=== PATIENT | female | born 1980 ===

== ENCOUNTER 2016-12-21 18:39 | Inpatient (IN) | payer OTHER ==
[~2016-12-21] VITALS: Ht 160 cm; Wt 71.2 kg
[~2016-12-21 18:39] MED LIST: Morphine PF 1 mg/mL 10 mL Inj ONE; Ondansetron 2 mg/mL 2 mL Inj ONE; Oxytocin 10 Unit/mL Inj ONE; Phenylephrine/NS 100 mCg/mL 10 mL Syringe IVPUSH ONE; fentaNYL-PF 50 mCg/mL 2 mL Inj ONE
[2016-12-21] MEDS ORDERED: Bupivacaine-MPF 0.75% 30 mL Inj ONE (19:41)
[2016-12-21] MEDS ORDERED: Phenylephrine/NS 100 mCg/mL 10 mL Syringe IVPUSH ONE (19:41)
[2016-12-21] MEDS ORDERED: Ondansetron 2 mg/mL 2 mL Inj ONE (19:41)
[2016-12-21] MEDS ORDERED: Oxytocin 10 Unit/mL Inj ONE (19:41)
[2016-12-21] MEDS ORDERED: Methylergonovine 0.2 mg/mL Inj IM PRN ×2 (19:55→22:10)
[2016-12-21] MEDS ORDERED: Sodium Chloride LOK Flush 10 mL Syringe IVFLUSH PRN ×2 (19:55→22:10)
[2016-12-21] MEDS ORDERED: Carboprost 250 mCg/mL Inj IM PRN ×2 (19:55→22:10)
[2016-12-21] MEDS ORDERED: Oxytocin 30 Units/500 mL LR 30 UNITS in IV Premix 1 EACH IV PRN ×2 (19:55→22:10)
[2016-12-21] MEDS ORDERED: Oxytocin 10 Unit/mL Inj IM PRN ×2 (19:55→22:10)
[2016-12-21] MEDS ORDERED: Hemorrhage Kit, Post Partum XX ONE ×2 (19:55→22:10)
[2016-12-21 20:00] LABS: Mean Corpuscular Hemoglobin 28.1 pg (27.0-35.0); Mean Corpuscular Volume 82.9 fL (81-100)
[2016-12-21] MEDS: Lactated Ringer's 1,000 ML IV PRN ×2 (20:12→20:34)
[2016-12-21] MEDS ORDERED: Sodium Citrate-Citric Acid 15 mL Solution PO SCH (20:25)
[2016-12-21] MEDS ORDERED: CeFAZolin Inj 2 GM in IV Premix 1 EACH IV ONE (20:25)
--- NOTE | 2016-12-21 20:29 | PCM.HPANE ---
Patient Data Surgeon Admitting Provider:Kris Padilla MD Attending Provider:Kris Padilla MD Primary Care Physician:Nopkenisha Other Provider: Reason for Visit Active Labor Ht/WT & BMI Body Mass Index Allergies Coded Allergies: No Known Allergies (Unverified , 12/21/16) Past Anesthesia History Anesthesia History: Denies:: Abnormal Airway, Anesthesia Reactions, Fam Anesthesia Reaction Diabetes History Hx Diabetes?: No MRSA MRSA: No Medications Hypertension Medication: No Home Meds Incl Beta Davie: No History History of ENT Problems?: No HEENT History: Denies:: Abnormal Airway Difficult Intubation Denture Type: None Teeth Condition: Broken Teeth (front tooth chipped, upper) Hx of Heart Problems?: No Cardiovascular History: Denies:: Cardiac Surgery Chest Pain Hx of Respiratory Problem?: No Respiratory History: Denies:: Asthma Hx Neurologic Problems?: No Hx of GI Problems?: No Hx of Problems?: No Female Hx: Positive for:: Currently Hx Musculoskeletal Problems?: No Hx Surgeries?: Yes Stop/Bang LATOSHA Risk Assessment: Low Risk, <3 Yes Risk Assessment Category Category 1A: Patient has history of documented sleep apnea, and HAS NOT received any narcotic, sedative or anesthesia administration during this stay. Category 1B: Patient has history of documented sleep apnea, and HAS received any narcotic , sedative or anesthesia administration during this stay Category 2: Patient has SUSPECTED Obstructive Sleep Apnea, and HAS received any narcotic , sedative or anesthesia administration during this stay. Category 3: Patient has SUSPECTED Obstructive Sleep Apnea and HAS NOT received narcotic, sedative or anesthesia administration during this stay. Category 4: Outpatient in Procedural Areas with known sleep apnea or who screen positive for High Risk via the STOP/BANG questionnaire. Exam Exam General Appearance: Alert, Oriented X3, Cooperative, No Acute Distress HEENT/AIRWAY: MP 1 Lungs: Normal Air Movement Heart: Exam Unremarkable Meds/Labs/Diagnostics Labs Test 12/21/16 19:56 White Blood Count 15.9th/mm3 (3.8-10.1) Red Blood Count 4.49mil/mm3 (3.90-5.20) Hemoglobin 12.6g/dL (12.0-15.6) Hematocrit 37.2% (35.0-46.0) Mean Corpuscular Volume 82.9fL (81-100) Mean Corpuscular Hemoglobin 28.1pg (27.0-35.0) Mean Corpuscular Hemoglobin Concent 33.9% (32.0-37.0) Red Cell Distribution Width 13.3% (12.3-15.4) Platelet Count 168bil/L (150-400) Plan Impression Patient chart reviewed, patient interviewed and anesthestic plan with risks, benefits, and alternatives discussed, and informed consent obtained. NPO per Anesth. Guidelines: Yes ASA Physical Status: ASA1 Normal Healthy Anesthetic Plan: SAB Bene/Risks/Altern/Consents: Yes HP Complete Prior to Induction: Yes Aly Swartz MD Dec 21, 2016 20:29
[2016-12-21] MEDS ORDERED: LEVO50TA6 PO (20:37)
[2016-12-21] MEDS ORDERED: PNV1TABL9 PO (20:38)
[2016-12-21] MEDS ORDERED: Lactated Ringer's 1,000 ML IV PRN (21:29)
[2016-12-21] MEDS ORDERED: fentaNYL-PF 50 mCg/mL 2 mL Inj IVPUSH PRN (21:30)
[2016-12-21] MEDS ORDERED: Dexamethasone 4 mg/mL Inj IVPUSH PRN (21:30)
[2016-12-21] MEDS ORDERED: Ondansetron 2 mg/mL 2 mL Inj IVPUSH PRN (21:30)
[2016-12-21] MEDS ORDERED: EPHEDrine Sulfate 50 mg/mL Inj IVPUSH PRN (21:30)
[2016-12-21] MEDS ORDERED: Atropine 0.4 mg/mL Inj IV PRN (21:30)
[2016-12-21] MEDS ORDERED: Morphine PF 1 mg/mL 10 mL Inj EPIDURAL ONE (21:30)
[2016-12-21] MEDS ORDERED: Lactated Ringer's 1,000 ML IV SCH (22:08)
[2016-12-21] MEDS ORDERED: diphenhydrAMINE 50 mg Capsule PO PRN (22:10)
[2016-12-21] MEDS ORDERED: hydrOXYzine Pamoate 25 mg Capsule PO PRN (22:10)
[2016-12-21] MEDS ORDERED: LANOlin HPA 7 Gm Ointment TOPICAL PRN (22:10)
--- NOTE | 2016-12-21 22:24 | HP ---
[address] [address] HISTORY AND PHYSICAL PATIENT: BHUPINDER TOLLIVER : 1980 MR#: [id number] ADMIT: 12/21/2016 JOB ID: [id number] DATE: 12/21/2016 HISTORY OF PRESENT ILLNESS: The patient is a 36-year-old, 3, para 2, with a history of one spontaneous vaginal delivery and one prior delivery in [facility], unknown prior uterine scar, vertical abdominal incision. The patient has been seen in the clinic today for care, was examined, was found to be 3 cm dilated. The patient presents to Labor and Delivery with complaint of contractions that started at around 5 p.m., becoming more frequent and intense, every 5 minutes. heart rate tracing is reactive, category 1, baseline 150 beats per minute, good accelerations. care was uncomplicated. She is group B strep negative. Rubella immune. SOCIAL HISTORY: Patient denies smoking, alcohol, illicit recreational drug use. FAMILY HISTORY: Noncontributory. ALLERGIES: NKDA. PHYSICAL EXAMINATION: Vital signs: Temperature 36.6, blood pressure 120/64 and regular, respiratory rate 18. General: Awake alert, oriented x3 in no apparent distress, complains of increasing contractions, moderate. Lungs clear bilaterally, no adventitious sounds, good respiratory effort. Cardiovascular: Regular rate and rhythm. Abdomen is gravid, fundal height 40 cm, nondistended, nontender. Cephalic presentation. Vaginal exam: The cervix is 3-4 cm dilated, 75% effaced, station -2. Intact membranes. Slight spotting. Extremities: No pitting edema bilaterally. LABS: WBC count 15.9, hemoglobin 12.6, hematocrit 37.2, platelets 168. ASSESSMENT AND PLAN: This is a 36-year-old, 3, para 2, at 39 weeks and 9 days in labor, presents to Labor and Delivery, history of prior section with unknown scar overseas in [facility]. The risks and benefits of repeat delivery were explained to the patient and informed consent was obtained. The patient received preoperative antibiotics. Bicitra was given. IV hydration started with lactated Ringer at 125 mL/h. The patient is going for repeat delivery.
--- NOTE | 2016-12-21 22:52 | OP ---
[address] [address] OPERATIVE REPORT PATIENT: BHUPINDER TOLLIVER : 1980 MR#: [id number] ADMIT: 12/21/2016 JOB ID: [id number] DATE OF SURGERY: 12/21/2016 PROCEDURE: Repeat low transverse delivery. PREOPERATIVE DIAGNOSIS(ES): 1. Intrauterine , 39 weeks and 6 days. 2. History of prior section with unknown uterine scar. 3. bradycardia. POSTOPERATIVE DIAGNOSIS(ES): SURGEON: Kris Padilla MD. HEAVY EQUIPMENT SERVICE MANAGER: Foreign So MD. ANESTHESIA: Spinal. Aly Swartz MD ESTIMATED BLOOD LOSS: 700 mL. ESTIMATED FLUIDS: 1500 mL of lactated Ringer's. URINE OUTPUT: 300 mL. FINDINGS: Some adhesions between the lower uterine segment and the bladder. Prior transverse scar on the uterus. Normal appearance of the adnexa. Delivered female with weight 3276 g. scores 7 at one minute and 9 at five minutes. PROCEDURE: The patient was brought to the operating room, where she underwent spinal anesthesia without difficulty. The patient was placed in a dorsal supine position with a leftward tilt. She received preoperative antibiotics. Shortly prior to the section, the heart rate tracing showed bradycardia so there was no time for the time-out. Emergent low transverse delivery was done. The skin was incised by Pfannenstiel incision and it was carried down to the underlying layer of rectus muscle fascia using scalpel. The rectus muscle fascia was incised in the midline with the scalpel and the incision was laterally extended using Benítez scissors. The upper aspect of the incision was grasped with two Aakash clamps and the rectus muscle fascia was from the underlying rectus muscle using moist laparotomy sponge and Benítez scissors. In a similar fashion, the lower aspect of the incision was grasped with two Aakash clamps and the rectus muscle fascia was from the underlying rectus muscle using Benítez scissors. The rectus muscles were in the midline using Sravanthi clamp. The peritoneum was identified, entered and extended laterally. The patient had adhesions between the bladder and lower uterine segment. It was lysed using Metzenbaum scissors. When the lower uterine segment was seen, it was incised with a scalpel. Lower segment transverse uterine incision was made and extended laterally using bandage scissors. The head of the was gently held, the bladder blade was removed, and female was atraumatically delivered. The baby was handed off to the awaiting community affairs manager and respiratory therapist. The time from the incision to delivery was three minutes. The cord blood was sent. The placenta was removed by application of fundal pressure. The uterus was exteriorized and cleared from all the blood clots and debris using dry laparotomy sponge. The uterine incision was repaired with two layers of 0 Monocryl. Good hemostasis was achieved. The pelvis was irrigated with warm normal saline and the uterus was repositioned into the pelvis. The rectus muscles were reapproximated with three interrupted 2-0 Vicryl sutures. The rectus muscle fascia was closed with 0-Vicryl. The Antonio's fascia and subcuticular tissue was reapproximated with four interrupted 3-0 Vicryl sutures. The skin was closed with 4-0 Monocryl. Dermabond glue was applied. Hemostatic dressing was applied. The patient tolerated the procedure well and was transferred to the recovery room in stable condition. MANPREET
[2016-12-21] MEDS: Acetaminophen IV 1,000 MG in IV Premix 1 EACH IV PRN (23:16)
[2016-12-22] MEDS: Acetaminophen IV 1,000 MG in IV Premix 1 EACH IV PRN (06:03)
[2016-12-22 07:33] LABS: Mean Corpuscular Hemoglobin 27.5 pg (27.0-35.0); Mean Corpuscular Volume 84.8 fL (81-100)
[2016-12-22] MEDS ORDERED: Measles-Mumps-Rubella Vaccine 0.5 mL Inj SUBQ ONE ×2 (08:15→14:00)
[2016-12-22] MEDS: Ascorbic Acid 500 mg Tablet PO SCH (08:20)
--- NOTE | 2016-12-22 14:04 | PCM.PNOBPP ---
Subjective Date of Service Dec 22, 2016 Visit History The patient is a 36-year-old, 3, para 2, with a history of one spontaneous vaginal delivery and one prior delivery in [facility], unknown prior uterine scar, vertical abdominal incision. The patient has been seen in the clinic 12/21/16 for care, was examined, was found to be 3 cm dilated. The patient presents to Labor and Delivery with complaint of contractions that started at around 5 p.m., becoming more frequent and intense, every 5 minutes. At time of admission heart rate tracing is reactive, category 1, baseline 150 beats per minute, good accelerations. Patient admitted for repeat Cesarian section. Shortly prior to the section, the heart rate tracing showed bradycardia decision was made to bring patient back to OR for emergent Cesarian section. patient delivered healthy male via cesarian section at 0347 12/22/16. Subjective Post day 1 patient doing well, no active complaints, denies fever, chills , nausea, vomiting. Patient has not been ambulating in room, Bradley in place no discomfort noted. Lochia light. Labs She is group B strep negative. Rubella immune. Hep B positive: Hepatitis B surface antigen is positive. The rest of hepatitis panel is normal. Hepatitis B E antigen level is negative. H/H 42.3/14.3 Group B Strep Results: Negative Rubella: Immune Blood Type: B RH Type: Positive Labs Laboratory Tests 12/22/16 06:44: White Blood Count 14.8, Red Blood Count 3.49, Hemoglobin 9.6, Hematocrit 29.6, Mean Corpuscular Volume 84.8, Mean Corpuscular Hemoglobin 27.5, Mean Corpuscular Hemoglobin Concent 32.4, Red Cell Distribution Width 13.2, Platelet Count 196 Exam Vital Signs Vital Signs: VS reviewed, stable Exam Abdomen: Fundus firm Perineum: Intact : Bradley catheter Extremities: No cords, Edema 1+ Lungs: Clear to Auscultation, Normal Air Movement Heart: Regular Rate/Rhythm, Normal S1, Normal S2 General: Alert, Oriented X3, Cooperative Surgical Wound : Incision General Appearence: Wound under dressing Dressing & Drainage Status: Dry & Intact, Reinforced, No Odor OB Post Assessment/Plan Assessment The patient is a 36-year-old, 3, para 2, with a history of one spontaneous vaginal delivery and one prior delivery in [facility], unknown prior uterine scar, vertical abdominal incision. admitted for repeat Cesarian section, required emergency cesarian section for bradycardia Pain Evaluation: Adequate Pain Control Plan: Continue routine post care Vitals Q8 Bradley cath DC today measure I/O Encourage up and about Ibuprofen for pain 600 mg Q8 Percocet 5-325 1-2 tab PO Q4-6 hours Feso4 325 mg BID Vitamin C QD Levothyroxine 50 mcg QD Hep B viral titer quant ordered, pending Attending Statement I saw patient and examined her. I agree with above plan. KAMI POP DO Dec 22, 2016 14:04 Joanie Anthony MD Dec 24, 2016 16:22
[2016-12-22] MEDS: oxyCODONE-Acetamin 5-325 mg Tablet PO PRN ×2 (14:07→19:23)
[2016-12-23] MEDS: oxyCODONE-Acetamin 5-325 mg Tablet PO PRN ×6 (00:12→20:29)
[2016-12-23] MEDS: Ascorbic Acid 500 mg Tablet PO SCH (08:24)
[2016-12-23 11:56] LABS: BASOPHILS % (AUTO) 0.1 % (0-3)
[2016-12-23 12:04] LABS: Mean Corpuscular Hemoglobin 27.4 pg (27.0-35.0)
[2016-12-23 12:10] LABS: EOSINOPHILS % (AUTO) 0.7 % (0-5); MONOCYTES % (AUTO) 5.5 % (4-12); Mean Corpuscular Volume 85.2 fL (81-100); NEUTROPHILS % (AUTO) 86.9 % (40-74); Platelet Count 189 bil/L (150-400)
--- NOTE | 2016-12-23 13:12 | PCM.PNOBPP ---
Subjective Date of Service Dec 23, 2016 Post : Repeat Ceserean Delivery Visit History The patient is a 36-year-old, 3, para 2, with a history of one spontaneous vaginal delivery and one prior delivery in [facility], unknown prior uterine scar, vertical abdominal incision. The patient has been seen in the clinic 12/21/16 for care, was examined, was found to be 3 cm dilated. The patient presents to Labor and Delivery with complaint of contractions that started at around 5 p.m., becoming more frequent and intense, every 5 minutes. At time of admission heart rate tracing is reactive, category 1, baseline 150 beats per minute, good accelerations. Patient admitted for repeat Cesarian section. Shortly prior to the section, the heart rate tracing showed bradycardia decision was made to bring patient back to OR for emergent Cesarian section. patient delivered healthy infant male via cesarian section at 0347 12/22/16. Post day 1 patient doing well, no active complaints, denies fever, chills , nausea, vomiting. Patient has not been ambulating in room, Lui in place no discomfort noted. Lochia light. Subjective Post Day 2 patient is doing well, complains of abdominal pain with standing. Pain moderately controlled with PO pain medication. Patient noted that she is eating well, drinking fluids, passing gas, no drainage from incision. Patient has lui in place, denies discomfort, good urine output. Breast feeding without difficulty. Discussed pending hepitits B lab panels with patient, from out patient labs no active but latent infection identified, viral titers will help to identify current viral burden and stratify risk of transmission at time of delivery. Discussed with patient that adequate prophylaxis for her was given and pediatrics will closely monitor her child. All questions at this time answered. Patient denies fever, chills, nausea , vomiting, headache, change in vision, yellowing of skin. Lochia: Light Pain Management: PO pain meds Gastrointestinal: Good Appetite, No N/V, Passing Flatus Postop Activity: Ambulating in Room Only (with nursing assistance) Group B Strep Results: Negative Rubella: Immune Blood Type: B RH Type: Positive Labs Laboratory Tests 12/23/16 11:30: White Blood Count 19.2, Red Blood Count 3.17, Hemoglobin 8.7, Hematocrit 27.0, Mean Corpuscular Volume 85.2, Mean Corpuscular Hemoglobin 27.4, Mean Corpuscular Hemoglobin Concent 32.2, Red Cell Distribution Width 13.4, Platelet Count 189, Neutrophils (%) (Auto) 86.9, Lymphocytes (%) (Auto) 6.4, Monocytes (% ) (Auto) 5.5, Eosinophils (%) (Auto) 0.7, Basophils (%) (Auto) 0.1 Exam Vital Signs Vital Signs: VS reviewed, stable Exam Abdomen: Fundus firm Perineum: Intact : Lui catheter Extremities: No cords, No tenderness/swelling, No edema Lungs: Clear to Auscultation, Normal Air Movement Heart: Regular Rate/Rhythm, Normal S1, Normal S2 General: Alert, Oriented X3, Cooperative, No Acute Distress Surgical Wound : Incision General Appearence: Steri Strips, Sutures, Intact, Well Approximated, Incision Healing Dressing & Drainage Status: Dry & Intact, No Odor OB Post Assessment/Plan Assessment The patient is a 36-year-old, 3, para 2, with a history of one spontaneous vaginal delivery and one prior delivery in [facility], unknown prior uterine scar, vertical abdominal incision. admitted for repeat Cesarian section, required emergency cesarian section for bradycardia H/H 8.7/27 AST 30 ALT 14 Plan Diet Full Continue routine post care Vitals Q8 Lui cath DC today measure I/O Encourage up and about Ibuprofen for pain 600 mg Q8 Percocet 5-325 1-2 tab PO Q4-6 hours Feso4 325 mg BID Vitamin C QD Levothyroxine 50 mcg QD Hep B viral titer quant ordered, pending Pain Evaluation: Adequate Pain Control Plan: Continue routine post care Vitals Q4 Lui cath DC today measure I/O Encourage up and about Ibuprofen for pain 600 mg Q8 Percocet 5-325 1-2 tab PO Q4-6 hours Feso$ 325 mg BID Vitamin C QD Hep B viral titer quant ordered KAMI POP DO Dec 23, 2016 13:12
[2016-12-24] MEDS: oxyCODONE-Acetamin 5-325 mg Tablet PO PRN ×3 (01:56→11:47)
--- NOTE | 2016-12-24 08:30 | PCM.DIOB ---
Obstetrical Disch Instruction Date of Service: Dec 24, 2016 Dates of Hospitalization Date of Hospital Admission Dec 21, 2016 at 19:40 Providers Admitting Physician: Kris Padilla MD Primary Care Physician: Nopcp Attending Physician: Kris Padilla MD Discharge Diagnosis Discharge Diagnosis s/p repeat c/section POD3 Post Operative diagnosis s/p repeat c/section POD3 Problems: Diet Discharge Diet: No restrictions Activity Discharge Activity-General: Pelvic Rest for 6 weeks, Try not to overdue, Be up and about, Balance rest and activity, No lifting >15 pounds for 2 weeks Dressing and Incisional Care Dressing Care: Allow Steri Stripes to fall off Hygiene: May shower, NO bathtub, hot tub or whirlpool Additional Instructions Discharge Instructions Please call office if heavy vaginal bleeding, severe abdominal pain, foul smelling discharge, fever more than 100.4 or short of breath. Please follow up in office 2 weeks and 6 weeks after delivery. Follow Up Plan Follow Up Plan 2 and 6 weeks after delivery Follow-up Provider (F9): Joanie Anthony MD Follow-up appointment: Weeks (2 and 6) Call your provider for: Fever or Chills, Shortness of breath, Heavy vaginal bleeding, Heavy bleeding, Epigastric pain, Excessive constipation, Vaginal discomfort, Red painful breasts Joanie Anthony MD Dec 24, 2016 08:30
[2016-12-24] MEDS ORDERED: IBUP800T28 PO (08:32)
[2016-12-24] MEDS ORDERED: FERR-74 PO (08:32)
[2016-12-24] MEDS ORDERED: DOCU-41 PO (08:32)
[2016-12-24] MEDS ORDERED: OXYC1TAB24 PO (08:32)
--- NOTE | 2016-12-24 08:40 | PCM.DC.OB ---
Obstetrical Discharge Summary Date of Service Dec 24, 2016 Date of hospital admission Dec 21, 2016 at 19:40 Date of Discharge: Dec 24, 2016 Providers Admitting Physician: Kris Padilla MD Primary Care Physician: Nopkenisha Attending Physician: Kris Padilla MD Diagnosis at Time of Discharge s/p repeat c/section POD3 Problems: Invasive procedures repeat c/section Date of Procedure: Dec 21, 2016 Brief History and Physical: 36 yo, at 39 weeks, history of vaginal delivery once and once. Fullterm c/section. No surgical report. Decision was made for repeat c/section at last visit in office. Known postive HbsAg, HBcAb, but negative HBeAg. No nausea/vomiting or jaundice is . Admitted on 12/21/16 for early labor. Afebrile at admission. No abnormal finding with physical examination. decision was made to have repeat c/section. Hospital Course: Repeat c/section was done and not complicated. She's been doing well after delivery. Pain is well controlled by pain medication. Ambulating well. Voiding well. Tolerate diet. Physical exam: afebrile, cardiac RRR no murmur, pulmonary b/l clear. abdomen: soft, nontender, uterus well contracted. lochia: moderate to minimal. Extremeties: no tender. WBC: 19.2 H/H 8.7/27 AST/ALT: 30/14 HBsAg: +, Viral DNA pending Docusate Sodium (Colace) 100 Mg Capsule 100 MG PO BID PRN PRN For Constipation Prescribed by: JOANIE LIAO MD Ferrous Sulfate (Feosol) 325 Mg Tablet 325 MG PO BIDWM Prescribed by: JOANIE LIAO MD Ibuprofen (Ibuprofen) 800 Mg Tablet 800 MG PO Q6H PRN PRN For Pain Prescribed by: JOANIE LIAO MD Levothyroxine (Levothyroxine) 50 Mcg Tablet 50 MCG PO DAILY (Reported) Last Taken: Unknown Dose on 12/21/16 0430 Pnv Cmb#21/Iron/Folic Acid ( Complete Caplet) 1 Each Tablet 1 EACH PO (Reported) Last Taken: Unknown Dose on 12/21/16 0430 oxyCODONE-Acetaminophen 5-325 mg ( oxyCODONE-Acetaminophen 5-325 mg) 1 Each Tablet 1-2 TAB PO Q8H PRN PRN For Pain Prescribed by: JOANIE LIAO MD Disposition home Follow-up plan follow up in office 2 and 6 weeks after delivery Discharge Diet: No restrictions Discharge Activity-General: Pelvic Rest for 6 weeks, Pelvic Rest, Try not to overdue, Be up and about, Balance rest and activity, Activity as energy allows, No lifting >15 pounds for 2 weeks Patient instructions Please call office if heavy vaginal bleeding, severe abdominal pain, foul smelling discharge, fever more than 100.4 or short of breath Joanie Liao MD Dec 24, 2016 08:40
[2016-12-24] MEDS: Ascorbic Acid 500 mg Tablet PO SCH (09:19)
[2016-12-24 11:18] VITALS: BP 86/46; PULSE 78; RESP 16
== END 2016-12-24 13:19 | disposition home or self-care (01) | DRG 766 ==
LOC: FBCO 18:39 → FBC 19:40
PROVIDERS: ADMIT Legal Medicine; ATTEND Legal Medicine
PROC: 0JNC0ZZ Release Pelvic Region Subcutaneous Tissue and Fascia, Open Approach (ICD-10-PCS; 2016-12-21)
PROC: 10D00Z1 Extraction of Products of Conception, Low, Open Approach (ICD-10-PCS; principal; 2016-12-21 20:54)
DX: O76 Abnormality in fetal heart rate and rhythm complicating labor and delivery (principal); N73.6 Female pelvic peritoneal adhesions (postinfective); O34.211 Maternal care for low transverse scar from previous cesarean delivery; Z37.0 Single live birth; Z3A.39 39 weeks gestation of pregnancy

== ENCOUNTER 2017-01-04 15:59 | Inpatient (IN) | payer OTHER ==
[~2017-01-04] VITALS: Ht 160 cm; Wt 61.8 kg
[~2017-01-04 15:59] MED LIST changes: +DOCU-41 PO; +FERR-74 PO; +IBUP800T28 PO; +LEVO50TA6 PO; -Morphine PF 1 mg/mL 10 mL Inj ONE; +OXYC1TAB24 PO; -Ondansetron 2 mg/mL 2 mL Inj ONE; -Oxytocin 10 Unit/mL Inj ONE; +PNV1TABL9 PO; -Phenylephrine/NS 100 mCg/mL 10 mL Syringe IVPUSH ONE; -fentaNYL-PF 50 mCg/mL 2 mL Inj ONE
--- NOTE | 2017-01-04 16:10 | PCM.HPMED ---
Subjective Date of Service Jan 04, 2017 Primary Provider: Admitting Physician: Kris Padilla MD Primary Care Physician: Deepa Attending Physician: Audi Moralez MD Admit Status: Direct Admit, Full Admit Chief Complaint: Abdominal peritoneal abscess s/p repeat on December 21/2017 History of Present Illness: This is a otherwise healthy 36 y/o with history of hypothyroidism on levothyroxine 50 micrograms daily, and iron deficiency anemia , who presented for direct admit to [facility] secondary to abdominal pain and oozing purulent material from surgical wound s/p repeat on 12/21/2016 at 39 weeks gestation. Patient's past OB history includes 1 vaginal delivery, and one prior full-term . Patient was GBS negative, and had no care complications. During her last admit for she was a known positive hepatitis B surface antigen, and core antibody, but negative for HepBeAg. Post C -section the patient did well with no complications and patient was discharged home with instructions to follow-up routinely in the clinic at [address] abdomen done at outside facility that showed: 1. 2 abscesses within the lower anterior abdominal wall measuring 2.0 x 8.2 x 5.2 cm superficial and 1.3 x 2.7 x 3.1 cm deep. 2. Enlarged uterus consistent with recent . There is heterogeneous fluid within the endometrial cavity. Differential diagnosis includes clots versus retained products of conception. There is subtle increased enhancement along the endometrial lining. Cannot rule out endometriosis. Recommended clinical correlation. On 01/03/2017 CBC showed: WBC 19.1, H/H 10.1/31.4, platelets 580 CMP showed: elevated alkaline phosphatase of 127 Patient was admitted to the medical floor for IV antibiotics and medical management. Review of Systems: Complete review of systems was conducted and found to be negative except as mentioned above in the history of present illness. Allergies Coded Allergies: No Known Allergies (Unverified , 12/21/16) Home Medications Docusate sodium 100 mg capsule by mouth twice a day when necessary Ferrous sulfate 325 mg tablet by mouth twice a day with meals Ibuprofen 800 mg by mouth every 6 hours when necessary pain Levothyroxine 50 g tablet daily vitamin Percocet 5/325 mg tablets take 1-2 tablets by mouth every 8 hours for pain PMH Hypothyroidism Anemia chronicity unknown Surgical History section on 12/21/2016 Prior section done in [facility] with vertical abdominal incision. Prior vaginal delivery Family History Noncontributory Social History Hx Alcohol Use: No Hx Substance Use: No Hx Tobacco Use: No Smoking Status: Never Smoker Living Arrangement: with Family Exam Exam General: Alert and oriented 3, and comfortably in bed, speaking in full sentences, with moderate abdominal pain. HEENT: NC/AT, eyes, PERRLA, EOMI, neck, soft supple, no adenopathy, no JVD, no masses, no thyromegaly, throat mucous membranes pink and moist, no erythema, no exudates, no tonsillar swelling, no uvular deviation. Lungs: CTAB all toure, no wheezes, no rhonchi, no crackles, no adventitious lung sounds, no use of accessory muscles of respiration, good air movement, good respiratory effort. Heart: Regular rate and rhythm, no murmur, S1-S2 present, no rub, no click, no distant heart sounds, Abdomen: Soft, mildly tender over wound, abdomen nondistended, bowel sounds active, no rebound, no guarding, there is serosanguineous fluid draining from the surgical wound. Genitourinary: No CVA tenderness, no suprapubic tenderness, no Bradley catheter, Extremities: Muscle strength, 5 out of 5 upper/lower extremity and symmetric laterally, pulses equal and symmetric upper/lower extremity including radial and dorsalis pedis, no edema Neurologic: Grossly neurologically intact, speaking in full sentences, no focal neurological signs. Skin: surgical wound on abdomen consistent with a recent . Wound draining serosanguineous fluid. Psychiatric: Mood is cheerful and mood and affect are congruent and appropriate. Lab and Diagnostics Labs On 01/03/2017 CBC showed: WBC 19.1, H/H 10.1/31.4, platelets 580 CMP showed: elevated alkaline phosphatase of 127 X-Rays, CTs and MRIs 01/04/2017 CT abdomen done at outside facility that showed: 1. 2 abscesses within the lower anterior abdominal wall measuring 2.0 x 8.2 x 5.2 cm superficial and 1.3 x 2.7 x 3.1 cm deep. 2. Enlarged uterus consistent with recent . There is heterogeneous fluid within the endometrial cavity. Differential diagnosis includes clots versus retained products of conception. There is subtle increased enhancement along the endometrial lining. Cannot rule out endometriosis. Recommended clinical correlation. Assessment & Plan This is a pleasant 36-year-old who presented or direct admit secondary to acute onset of abdominal pain and oozing wound status post a repeat low transverse on 12/21/2016. # Acute abdominal peritoneal abscess as seen on CT abdomen and pelvis, present on admission, active - CT abdomen pelvis:1. 2 abscesses within the lower anterior abdominal wall measuring 2.0 x 8.2 x 5.2 cm superficial and 1.3 x 2.7 x 3.1 cm deep. 2. Enlarged uterus consistent with recent . There is heterogeneous fluid within the endometrial cavity. Differential diagnosis includes clots versus retained products of conception. There is subtle increased enhancement along the endometrial lining. Cannot rule out endometriosis. Recommended clinical correlation. -On 01/03/2017 CBC showed: WBC 19.1, H/H 10.1/31.4, platelets 580 - CMP showed: elevated alkaline phosphatase of 127 - Direct admit to the service of Kirs Pickering MD - Interventional radiology was consulted by Dr. Josseline Hoyos who recommended IV antibiotics as the abscess was considered small and likely to heal on its own with conservative management. - CBC, CMP, lactic acid, wound culture, MRSA nasal screen, ordered and pending today now. - IV antibiotics Flagyl, ampicillin, gentamicin, - IV fluids NS at 125 mL per hour - Nothing by mouth for now - Patient is full code # Status post repeat on 12/21/2016 - Likely cause of abscess listed above. - Wound care aware of patient and has been followed as outpatient with the wound clinic. # Hypothyroidism, present remission, active - We'll continue levothyroxine 50 g daily # Anemia, present remission, active - Continue oral iron 325 mg by mouth twice a day, and will add vitamin C. Disposition: Admit general, secondary to complexity of medical management and risk of adverse outcomes. Code Status: Full code DVT prophylaxis: Subcutaneous heparin PCP: Dr. Valerie Griffin M.D. truck driver salesperson: [employer] Mechanical Devices: Intermittant Pneumatic CD Resuscitation Status: CPR: Attempt Resuscitation Mariano Yates DO Jan 04, 2017 16:10
--- NOTE | 2017-01-04 16:46 | NUR ---
Admit to room 249-1 Pt arrived as direct admit. Arrived via w/ch. Family and baby at bedside. [id number] Padilla to notify of patients arrival called back and he reported he spoke with Josseline Hoyos
[2017-01-04] MEDS: 0.9% Sodium Chloride 1,000 ML IV SCH (17:10)
[2017-01-04] MEDS ORDERED: DEXTROSE 5% IV SCH (17:15)
[2017-01-04] MEDS ORDERED: GENTAMICIN IV SCH (17:15)
[2017-01-04] MEDS: oxyCODONE-Acetamin 5-325 mg Tablet PO PRN (17:33)
[2017-01-04 17:43] LABS: BASOPHILS % (AUTO) 0.2 % (0-3); EOSINOPHILS % (AUTO) 2.4 % (0-5); MONOCYTES % (AUTO) 7.8 % (4-12); Mean Corpuscular Hemoglobin 26.5 pg (27.0-35.0); Platelet Count 656 bil/L (150-400)
[2017-01-04] MEDS ORDERED: Ondansetron 2 mg/mL 2 mL Inj IVPUSH PRN (17:45)
[2017-01-04] MEDS ORDERED: Polyethylene Glycol (PEG) 17 Gm Powder PO PRN (17:45)
[2017-01-04] MEDS ORDERED: Alum-Mag Hydrox-Simeth 30 mL Suspension PO PRN (17:45)
[2017-01-04] MEDS ORDERED: DOCU-41 PO (17:56)
[2017-01-04] MEDS ORDERED: SULF1TAB7 ORAL (17:56)
--- NOTE | 2017-01-04 19:00 | NUR ---
ISOLATION Pt placed in contact isolation pending MRSA PCR and abscess swab results. Informed pt, family taking infant home, all aware. Addendum: 01/04/17 at 2228 by BETHANY BETANCOURT RN MRSA PCR negative, will reassess need for contact precautions pending abscess results.
[2017-01-04] MEDS: Ampicillin 2,000 mg/100 mL NS Minibag Plus IV SCH ×2 (19:06)
[2017-01-04 20:30] VITALS: BP 106/68; PULSE 84; RESP 20; O2SAT 99
[2017-01-04] MEDS: GENTAMICIN IV SCH (20:35)
[2017-01-04] MEDS: DEXTROSE 5% IV SCH (20:35)
[2017-01-05] MEDS: Ampicillin 2,000 mg/100 mL NS Minibag Plus IV SCH ×10 (00:06→23:28)
[2017-01-05] MEDS: oxyCODONE-Acetamin 5-325 mg Tablet PO PRN ×4 (00:13→18:53)
--- NOTE | 2017-01-05 00:21 | NUR ---
BREAST MILK/PUMPING Pt reports that she does breast feed her baby, though baby was taken home by family. Pt request to pump and keep milk for baby. Spoke with family nurse about precautions with antibiotics in breast milk--ampicillin, gentamicin, and metronidazonle. [facility] nurse said these should not harm baby. Will be storing breast milk and pass on to day shift for further instructions with Dr. Padilla. Addendum: 01/05/17 at 0112 by BETHANY BETANCOURT RN Per color paste mixing supervisor, milk to be kept in [facility] [place] fridge. Milk labeled with initials, date, and time of pump.
[2017-01-05 00:26] VITALS: BP 91/62; PULSE 89; RESP 20; O2SAT 99
[2017-01-05] MEDS: 0.9% Sodium Chloride 1,000 ML IV SCH ×2 (01:10→09:10)
[2017-01-05] MEDS: DEXTROSE 5% IV SCH ×3 (01:18→17:05)
[2017-01-05] MEDS: GENTAMICIN IV SCH ×3 (01:18→17:05)
[2017-01-05 06:17] LABS: BASOPHILS % (AUTO) 0.3 % (0-3); EOSINOPHILS % (AUTO) 3.3 % (0-5); MONOCYTES % (AUTO) 7.9 % (4-12); Mean Corpuscular Volume 84.4 fL (81-100); NEUTROPHILS % (AUTO) 69.7 % (40-74); Platelet Count 536 bil/L (150-400)
--- NOTE | 2017-01-05 08:10 | NUR ---
Inpatient Wound Nurse Patient seen for wound care of abdominal incision. Incision is observed at 1.5 cm L x 10 cm W. Deepest pocket is 3 cm at L lateral margin moving in a LUQ direction. A 2 cm D pocket is noted in the R lateral margin. Wound bed beefy red and draining sanguinous, non-odorous fluid. Removed gauze was saturated. Two firm areas are noted over lower L and medial abdomen superior of incision. Wound was cleansed and blotted dry, then packed with small roll gauze saturated with NS. A bordered sacral Mepilex with silicone facing was placed over incision. This should be a much more comfortable dressing for patient than ABD and tape and is more absorbent. This dressing can be replaced by nursing staff PRN. Nursing staff should alert CWON RN if packing is saturated and requires changing more than once daily. CWON will see daily M-F.
[2017-01-05 09:00] VITALS: BP 100/64; PULSE 84; RESP 18; O2SAT 96
--- NOTE | 2017-01-05 10:11 | PCM.PNMED ---
Subjective Date of Service Jan 05, 2017 Subjective This is a otherwise healthy 36 y/o with history of hypothyroidism,and iron deficiency anemia, who presented for direct admit to [facility] secondary to abdominal pain and oozing purulent material from surgical wound s/p repeat on 12/21/2016 at 39 weeks gestation. Patient was admitted for a small abscess/seroma seen on CT abdomen and was started on triple antibiotic therapy with Flagyl, ampicillin, gentamicin. Overnight: Patient remains afebrile with temperature 36.8 Celsius, blood pressure 91/62, heart rate 89, respiratory rate 20, and 99% room air. MRSA nasal PCR screen resulted negative. Patient's white blood cell count has trended down from 16.7 on admission to 13.2, H&H is 9.7 and 30.3, platelets 536. Surgical wound Gram stain was significant for PMNs and culture and sensitivities remains pending. Patient has minimal pain, and appetite is normal. Care was present in the room during exam. And her surgical wound measures 10 cm in length, with 3 cm deep on the left margin of the incision and 2 cm deep on the right side margin of the wound. Patient is 13 and ambulating without difficulty. Overall clinically the patient is doing well. Exam Vital Signs Vital Sign - Last Date Time Temp Pulse Resp B/P Pulse Ox O2 Delivery O2 Flow Rate FiO2 01/05/17 00:26 36.8 89 20 91/62 99 Room Air Intake and Output 01/04/17 01/04/17 01/05/17 Cumulative From/Thru 15:00 23:00 07:00 01/04/17 17:35 - 01/05/17 06:28 Intake Total 480 ml 480 ml Balance 480 ml 480 ml Intake Oral 480 ml 480 ml # Voids 2 4 6 Exam General: Alert and oriented 3 no acute distress resting in bed. HEENT: Head normocephalic /atraumatic no ecchymoses, eyes equally round , nares patent, Chest: Heart regular rate and rhythm, no murmur detected, lungs: CTAB all toure Abdomen: Tender, nondistended, without rebound or guarding. There is a 10 cm incisional wound that is open and draining serosanguineous fluid does not appear purulent, there is induration of the skin of the periwound, the wound extends to 3 cm deep on the left and 2 cm deep on the right. Genitourinary: No CVA tenderness Extremities: Minimal edema nonpitting bilaterally the level of the ankles, pulses equal bilaterally Psychiatric: Patient's mood is and affect is congruent, she is cheerful and communicative. IVs and Medications Medications Reviewed: Medications were reviewed in detail Lab and Diagnostics WBC trending down Result Diagram: 01/05/17 0550 Microbiology Gram stain showed PMNs, culture and sensitivities are pending. MRSA screen was negative Assessment & Plan This is a pleasant 36-year-old who presented or direct admit secondary to acute onset of abdominal pain and oozing serosanguineous fluid per wound status post a repeat low transverse on 12/21/2016. # Acute abdominal peritoneal abscess as seen on CT abdomen and pelvis, present on admission, active - CT abdomen pelvis:1. 2 abscesses within the lower anterior abdominal wall measuring 2.0 x 8.2 x 5.2 cm superficial and 1.3 x 2.7 x 3.1 cm deep. 2. Enlarged uterus consistent with recent . There is heterogeneous fluid within the endometrial cavity. Differential diagnosis includes clots versus retained products of conception. There is subtle increased enhancement along the endometrial lining. Cannot rule out endometriosis. Recommended clinical correlation. - On 01/03/2017 CBC showed: WBC 19.1, H/H 10.1/31.4, platelets 580 - CMP showed: elevated alkaline phosphatase of 127 - Direct admit to the service of Kris Pickering MD - Interventional radiology was consulted by Dr. Josseline Hoyos who recommended IV antibiotics as the abscess was considered small and likely to heal on its own with conservative management. - CBC, showed WBC 13.2 today. - Wound culture and sensitivities are pending, MRSA nasal screen returned negative. Gram stain positive for PMNs on - Continue IV antibiotics Flagyl, ampicillin, gentamicin. - Continue IV fluids NS at 125 mL per hour - General diet - Patient is full code # Status post repeat on 12/21/2016 - Likely cause of abscess listed above. - Wound care aware of patient and has been followed as outpatient with the wound clinic. # Hypothyroidism, present remission, active - We'll continue levothyroxine 50 g daily # Anemia, present remission, active - Continue oral iron 325 mg by mouth twice a day, and will add vitamin C. Disposition: Admit general, secondary to complexity of medical management and risk of adverse outcomes. Code Status: Full code DVT prophylaxis: Subcutaneous heparin PCP: Dr. Valerie Griffin M.D. personal computer network analyst: Pain Evaluation: Adequate Pain Control VTE Mechanical Devices: Intermittant Pneumatic CD Resuscitation Status: CPR: Attempt Resuscitation Mariano Yates DO Jan 05, 2017 10:11
[2017-01-05 13:36] VITALS: BP 100/64; PULSE 87; RESP 18; O2SAT 98
--- NOTE | 2017-01-05 14:21 | NUR ---
Social Work: Initial Assessment / Multidisciplinary Rounds Data: See initial assessment. Patient is a 36 year old female who was admitted on 01/04/17 for abdomina abscess post per H&P. Patient's insurance is [employer] and her PCP is Charan Avery MD. SW met with patient and [id number] to discuss discharge planning. SW role explained. Patient reports that she lives with SO and his parents in [place]. [employer] states that her family is her main source of support. Patient denies having a DPOA or AD and has declined SW offer for AD resources at this time. Patient reports that she is I at baseline and is able to perform all of her ADLs and care needs. Patient denies having a hx of home health services or SNF. Patient denies having senior care care insurance or VA benefits. Upon discharge, patient will discharge home with family. Transportation will be provided by family. SW provided patient with a discharge planning checklist booklet and encouraged her to call with any questions or concerns. Patient was discussed in morning rounds. No concerns were noted by MD or staff. Phone number provided. SW will continue to follow for needs. Assessment: Patient will likely discharge home when medically stable. Plan: Patient will likely discharge home when medically stable. Transportation will be provided by family. SW will continue to follow for needs. [address] Addendum: 01/05/17 at 1429 by RONNY ESCOBEDO SS Amended: Links added.
--- NOTE | 2017-01-05 19:07 | NUR ---
PAIN/ACTIVITY PATIENT AMBULATING WELL FROM BED TO BATHROOM. PAIN LEVEL OF 3-4/10 THIS SHIFT MANAGED WITH PERCOCET TABLET, EFFECTIVE. BABY WILL STAY IN THE ROOM WITH GRANDMA TONIGHT. WILL CONTINUE TO MONITOR.
[2017-01-05 20:30] VITALS: BP 102/64; PULSE 87; RESP 18; O2SAT 97
[2017-01-06] MEDS: 0.9% Sodium Chloride 1,000 ML IV SCH (01:06)
[2017-01-06] MEDS: oxyCODONE-Acetamin 5-325 mg Tablet PO PRN ×5 (01:06→21:30)
[2017-01-06] MEDS: GENTAMICIN IV SCH ×3 (02:38→16:52)
[2017-01-06] MEDS: DEXTROSE 5% IV SCH ×3 (02:38→16:52)
[2017-01-06] MEDS: Ampicillin 2,000 mg/100 mL NS Minibag Plus IV SCH ×8 (05:14→23:12)
[2017-01-06 05:39] VITALS: BP 112/75; PULSE 87; RESP 16; O2SAT 98
[2017-01-06 06:30] LABS: BASOPHILS % (AUTO) 0.2 % (0-3); EOSINOPHILS % (AUTO) 4.4 % (0-5); MONOCYTES % (AUTO) 7.4 % (4-12); Mean Corpuscular Hemoglobin 26.9 pg (27.0-35.0); Mean Corpuscular Volume 84.4 fL (81-100); NEUTROPHILS % (AUTO) 67.1 % (40-74); Platelet Count 605 bil/L (150-400)
--- NOTE | 2017-01-06 08:30 | NUR ---
Status/pain MD notified that pt had pain break through at about 4 hours, to increase frequency of percocet as needed. To DC IV fluids, encouraging po. To monitor wound.
[2017-01-06 11:50] VITALS: BP 110/71; PULSE 89; RESP 12; O2SAT 96
--- NOTE | 2017-01-06 15:52 | NUR ---
Wound care Coordinating with wound care for wound plan of care - will determine need for wound vac. Dressing changed this am per wound care instructions. Stable at this time. To continue wet to dry dressings at this time until providers reached for further instruction. Pt and family educated and verbalized understanding of signs/symptoms of infection/worsening.
--- NOTE | 2017-01-06 17:15 | NUR ---
Inpatient Wound Nurse Patient assessed for appropriateness of NPWT. No return phone call after 4 attempts to reach OB MD and FP resident declined to provide order. Nursing staff will continue with wet to dry dressing over weekend and re-assess on Monday.
[2017-01-06 18:10] VITALS: BP 102/64; PULSE 82; RESP 12; O2SAT 98
--- NOTE | 2017-01-06 20:31 | PCM.PNMED ---
Subjective Date of Service Jan 06, 2017 Subjective This is a otherwise healthy 36 y/o with history of hypothyroidism,and iron deficiency anemia, who presented for direct admit to [facility] secondary to abdominal pain and oozing purulent material from surgical wound s/p repeat on 12/21/2016 at 39 weeks gestation. Patient was admitted for a small abscess/seroma seen on CT abdomen and was started on triple antibiotic therapy with Flagyl, ampicillin, gentamicin. Overnight: Hospital day 3 Patient remains afebrile with temperature 36.7 C, blood pressure have improved on IV fluids and are 112/75. She is now (+) fluid ballance of 2687ml. Patient's white blood cell count continues to trended down from and is now in the normal range 10.9 Surgical wound is covored in adhesive dressing and the skin around the periwound appears improved. Gram stain was significant for PMNs and no organisms, culture insufficient growth and no anerobes. Patient pain is moderated and 6-7/10. She is currently on Percocet 5/325 mg Q6H. Her appetite is normal. Patient ambulating, and voiding without difficulty. No BM since 2 days ago. Overall clinically the patient is doing well. Exam Vital Signs Vital Sign - Last Date Time Temp Pulse Resp B/P Pulse Ox O2 Delivery O2 Flow Rate FiO2 01/06/17 18:10 36.9 82 12 102/64 98 Room Air Intake and Output 01/05/17 01/05/17 01/06/17 Cumulative From/Thru 15:00 23:00 07:00 01/04/17 17:35 - 01/05/17 18:39 Intake Total 2207 ml 2687 ml Balance 2207 ml 2687 ml Intake Oral 876 ml 1356 ml IV Total 1331 ml 1331 ml # Voids 3 9 # Bowel Movements 1 1 Exam General: Alert and oriented 3 no acute distress resting in bed. HEENT: Head normocephalic /atraumatic no ecchymoses, eyes equally round , nares patent, Chest: Heart regular rate and rhythm, no murmur detected, lungs: CTAB all toure Abdomen: Tender, nondistended, without rebound or guarding. There is a 10 cm incisional wound that is open and draining serosanguineous fluid does not appear purulent, there is induration of the skin of the periwound, the wound extends to 3 cm deep on the left and 2 cm deep on the right. Genitourinary: No CVA tenderness Extremities: Minimal edema nonpitting bilaterally the level of the ankles, pulses equal bilaterally Psychiatric: Patient's mood is and affect is congruent, she is cheerful and communicative. IVs and Medications Medications Reviewed: Medications were reviewed in detail Lab and Diagnostics Result Diagram: 01/06/17 0615 01/06/17 0555 Microbiology Gram stain showed PMNs, culture and sensitivities are pending. MRSA screen was negative Assessment & Plan This is a pleasant 36-year-old who presented or direct admit secondary to acute onset of abdominal pain and oozing wound status post a repeat low transverse on 12/21/2016. # Acute abdominal peritoneal abscess as seen on CT abdomen and pelvis, present on admission, active - CT abdomen pelvis:1. 2 abscesses within the lower anterior abdominal wall measuring 2.0 x 8.2 x 5.2 cm superficial and 1.3 x 2.7 x 3.1 cm deep. 2. Enlarged uterus consistent with recent . There is heterogeneous fluid within the endometrial cavity. Differential diagnosis includes clots versus retained products of conception. There is subtle increased enhancement along the endometrial lining. Cannot rule out endometriosis. Recommended clinical correlation. -On 01/03/2017 CBC showed: WBC 19.1, H/H 10.1/31.4, platelets 580 - CMP showed: elevated alkaline phosphatase of 127 - Direct admit to the service of Kris Pickering MD - Interventional radiology was consulted by Dr. Josseline Hoyos who recommended IV antibiotics as the abscess was considered small and likely to heal on its own with conservative management. - WBC count this AM shoed resolution of leukocytosis with WBC of 10.9 - Continue IV antibiotics Flagyl, ampicillin, gentamicin, - Stopped IV fluids NS at 125 mL per hour, almost 3 L (+) fluid balance. - General diet. - Patient is full code - Percocet 5/325 mg Q4-6H PRN pain - Continue with wet to dry dressings per wound care. # Status post repeat on 12/21/2016 - Likely cause of abscess listed above, as patient had precipitous delivery secondary to distress. - Wound care aware of patient and has been followed as outpatient with the wound clinic. # Hypothyroidism, present remission, active - We'll continue levothyroxine 50 g daily # Anemia, present remission, active - Continue oral iron 325 mg by mouth twice a day, and will add vitamin C. Disposition: Admit general, secondary to complexity of medical management and risk of adverse outcomes. 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
[2017-01-07 00:11] VITALS: BP 113/72; PULSE 75; RESP 17; O2SAT 98
[2017-01-07] MEDS: DEXTROSE 5% IV SCH ×3 (01:28→18:39)
[2017-01-07] MEDS: GENTAMICIN IV SCH ×3 (01:28→18:39)
--- NOTE | 2017-01-07 05:18 | NUR ---
PAIN,ABO,Wound Assumed patient care at 1930, pt. A&O, calm and pleasant, c/o 10/17 abd pain, prn percocet given, effective, continues IV Abo, wound dressing changed x1 per wound care instruction, VSS, afebrile, call light in reach at all times, will continue to monitor pain and wound healing, all needs attended.
[2017-01-07] MEDS: Ampicillin 2,000 mg/100 mL NS Minibag Plus IV SCH ×8 (05:32→23:14)
[2017-01-07 06:29] VITALS: BP 99/64; PULSE 77; RESP 16; O2SAT 98
--- NOTE | 2017-01-07 07:45 | NUR ---
Status OB at bedside. Per Dr. Suarez, to obtain wound vac supplies and OB team will apply wound vac as wound care nurse not available today. Aware that pt had BM this am. Aware of continued pain to abdominal incision as well as hardened spot about size of golf ball right of incision. VSS. Pt agreeable to plan of care. updated on POC at bedside.
[2017-01-07 07:48] VITALS: BP 109/74; PULSE 92; O2SAT 96
[2017-01-07] MEDS: oxyCODONE-Acetamin 5-325 mg Tablet PO PRN ×3 (07:51→22:11)
--- NOTE | 2017-01-07 08:30 | PCM.PNMED ---
Subjective Date of Service Jan 07, 2017 Subjective This is a otherwise healthy 36 y/o with history of hypothyroidism,and iron deficiency anemia, who presented for direct admit to [facility] secondary to abdominal pain and oozing purulent material from surgical wound s/p repeat on 12/21/2016 at 39 weeks gestation. Patient was admitted for a small abscess/seroma seen on CT abdomen and was started on triple antibiotic therapy with Flagyl, ampicillin, gentamicin. Overnight: Hospital day 4 Patient remains afebrile with temperature 36.2 C, BP 130/70. Tolerating PO fluids and nutrition without difficulty. No new labs for today, however labs yesterday showed patient's white blood cell count continues to trended down and WBC were 10.9 on 01/06/2017. Surgical wound is covered in clean dry and intact adhesive dressing and the skin around the periwound continues to improve. Small area of induration on the right lateral edge of the wound remains, but this is a considerable improvement from admission. Patient continues to complain of pain and her pain was 8/10 this morning. She seems hesitant to request her pain medication. This could possibly be a cultural thing. Recall gram stain was significant for PMNs and no organisms, culture insufficient growth and no anerobes. Patient ambulating, and voiding without difficulty. Patient had BM overnight.. Overall clinically the patient is doing better. Support person in room at time of visit. Exam Vital Signs Vital Sign - Last Date Time Temp Pulse Resp B/P Pulse Ox O2 Delivery O2 Flow Rate FiO2 01/07/17 07:48 92 109/74 96 Room Air 01/07/17 06:29 37.1 16 Intake and Output 01/06/17 01/06/17 01/07/17 Cumulative From/Thru 15:00 23:00 07:00 01/04/17 17:35 - 01/07/17 06:22 Intake Total 2342 ml 1700 ml 1386 ml 8115 ml Output Total 720 ml 720 ml Balance 1622 ml 1700 ml 1386 ml 7395 ml Intake Oral 920 ml 1200 ml 850 ml 4326 ml IV Total 1422 ml 500 ml 536 ml 3789 ml Output Urine Total 720 ml 720 ml # Voids 4 5 18 # Bowel Movements 0 1 2 Exam General: Alert and oriented 3 no acute distress resting in bed. HEENT: Head normocephalic /atraumatic no ecchymoses, eyes equally round , nares patent, Chest: Heart regular rate and rhythm, no murmur detected, lungs: CTAB all toure Abdomen: Tender, nondistended, without rebound or guarding. Bandage covering wound is clean dry and intact. Indurated area laterally on the right to wound. Otherwise tissue cellulitis appears much improved. Genitourinary: No CVA tenderness Extremities: Minimal edema nonpitting bilaterally the level of the ankles, pulses equal bilaterally IVs and Medications IV Fluids Off Medications Reviewed: Medications were reviewed in detail Lab and Diagnostics Result Diagram: 01/06/1761401/07/17 0522 Microbiology Gram stain showed PMNs, culture and sensitivities are pending. MRSA screen was negative Assessment & Plan This is a pleasant 36-year-old who presented or direct admit secondary to acute onset of abdominal pain and oozing wound status post a repeat low transverse on 12/21/2016. # Acute abdominal peritoneal abscess as seen on CT abdomen and pelvis, present on admission, active - CT abdomen pelvis:1. 2 abscesses within the lower anterior abdominal wall measuring 2.0 x 8.2 x 5.2 cm superficial and 1.3 x 2.7 x 3.1 cm deep. 2. Enlarged uterus consistent with recent . There is heterogeneous fluid within the endometrial cavity. Differential diagnosis includes clots versus retained products of conception. There is subtle increased enhancement along the endometrial lining. Cannot rule out endometriosis. Recommended clinical correlation. - On 01/03/2017 CBC showed: WBC 19.1, H/H 10.1/31.4, platelets 580 - CMP showed: elevated alkaline phosphatase of 127 - Interventional radiology was consulted by Dr. Josseline Hoyos who recommended IV antibiotics as the abscess was considered small and likely to heal on its own with conservative management. - Most recent WBC 10.9 - Continue IV antibiotics Flagyl, ampicillin, gentamicin, now day 4 - 01/06/2017 Stopped IV fluids NS at 125 mL per hour, almost 3 L (+) fluid balance. - General diet. - Patient is full code - Percocet 5/325 mg Q4-6H PRN pain - Plan for Wound vac placement. - Encourage patient to ambulate. # Status post repeat on 12/21/2016 - Likely cause of abscess listed above, as patient had precipitous delivery secondary to distress. - Wound care aware of patient and has been followed as outpatient with the wound clinic. -Patient complained of breast engorgement, is breast feeding during exam, breast pump available and patient states this is helpful, advised to breast feed often and pump otherwise. # Hypothyroidism, present remission, active - We'll continue levothyroxine 50 g daily # Anemia, present remission, active - Continue oral iron 325 mg by mouth twice a day, and will add vitamin C. Disposition: Admit general, secondary to complexity of medical management and risk of adverse outcomes. Code Status: Full code DVT prophylaxis: Subcutaneous heparin PCP: Dr. Valerie Griffin M.D. personnel interviewer: Pain Evaluation: Pain not Controlled VTE Mechanical Devices: Intermittant Pneumatic CD Resuscitation Status: CPR: Attempt Resuscitation Attending Statement I have personally examined this patient along with Dr. Yates and concur with the findings, clinical decision-making, and care provided as reflected in this progress note. Mariano Yates DO Jan 07, 2017 08:30 Adan Boyd MD Jan 07, 2017 14:55
[2017-01-07] MEDS ORDERED: Gentamicin Serum Trough XX ONE (08:45)
[2017-01-07] MEDS ORDERED: Gentamicin Serum Peak XX ONE (10:30)
[2017-01-07 11:15] LABS: Gentamicin, Trough 0.9 ug/mL Rx (0.5-1.5)
[2017-01-07] MEDS ORDERED: .Epic Conversion Completed XX PRN (11:15)
--- NOTE | 2017-01-07 11:15 | NUR ---
Wound Vac Message left for Dr. Yates that wound vac supplies available at this time. Addendum: 01/07/17 at 1504 by ALISHA HUNT RN Attempted to contact provider again at 1503, no response as of yet. Pt stable. WCLIZZETH wound. Addendum: 01/07/17 at 1831 by ALISHA HUNT RN Wound vac placed by Dr Boyd this afternoon. No drainage as of yet at 125mmhg low continuous suction. WCTM.
--- NOTE | 2017-01-07 13:19 | NUR ---
Breast pain Pt c/o right breast pain/hardening. center YOUNG Phelps assessed pt at bedside and will follow up with OB regarding potential needs. No noted breast redness. Tender to touch. Afebrile. YOUNG Phelps provided teaching. WCLIZZETH. Addendum: 01/07/17 at 1831 by ALISHA HUNT RN Seen by Dr. Boyd at bedside. To monitor R breast and encourage warm compresses and expression if possible.
[2017-01-07 13:50] VITALS: BP 115/72; PULSE 75; RESP 14; O2SAT 100
--- NOTE | 2017-01-07 14:00 | NUR ---
This RN at pt bedside to assist with c/o right breast soreness and concerns. Left breast soft and non-tender. Pt c/o tightness on lateral side of right breast, tender to touch, has been using a warm pack provided by YOUNG Miguel. Observed , Mom did not compress breast at all and baby was observed to be suckling on nipple only, encouraged football hold and deeper latch on right side. Pt reports that she had pumped a couple of times for an hour because she thought she wasn't making enough milk and her baby wasn't gaining enough weight. Advised her to not pump for more than 10-15 minutes after , no more than every three hours, and pump on left side only if right breast continues to be tight and painful. Also encouraged hand expression and demonstrated this to pt. Pt does not want any touching or pressure on her right breast due to pain. Pt somewhat teary throughout. Will notified Dr Boyd, request ibuprofen and request consult for tomorrow. Pt and RN verbalized understanding.
[2017-01-07] MEDS ORDERED: LANOlin HPA 7 Gm Ointment TOPICAL PRN (14:10)
[2017-01-07] MEDS ORDERED: fentaNYL-PF 50 mCg/mL 2 mL Inj IVPUSH ONE (15:45)
--- NOTE | 2017-01-07 16:21 | PCM.PROC ---
Procedure Note Date of Service: Jan 07, 2017 Pre Procedure Diagnosis: Transverse abdominal wound s/p low transverse Post Procedure Diagnosis: Transverse abdominal wound s/p low transverse Procedure: Wound vac placement Provider and Passenger Car Upholsterer Apprentice: Dr. Adan Boyd MD, EMOTIONAL SUPPORT TEACHER; Dr. Mariano Yates DO, R3 Indication for Procedure: Abdominal wound, draining seroma s/p low transverse Findings: Wound measuring 10 cm in length by 3.0 cm deep on the left lateral margin and 2.0 cm deep on the right lateral margin. Skin around periwound did not appear erythematous, or fluctuant, however right lateral margin of wound still remains indurated. Did not appreciate any odor during the inspection of the wound. Under sterile technique a single small 8-10 cm by 2.5 cm section of foam was cut and placed in the wound site using mosquito clamp. Then a V.A.C. drape was cut to size and applied over surface of foam. Small 2 cm hole was cut in drap overlying the foam and SensaTrac pad was applied. The patient tolerated procedure well. Note patient also has tenderness, induration, of the right breast at the 7 to 10 oclock position without any erythema or fluctuance. Was unable to express any drainage secondary to the exquisite tenderness to the sight. Procedural Analgesia: Fentanly 25 mcg IV once Procedure Details: Placement of a wound vac using sterile technique. The procedure was tolerated well by patient. No complications during procedure. Post Procedure Plan: # Abdominal wound - Wound vac placed at 1600 on 01/07/2017 - If Vac fails to obtain good seal then will return to wet to dry bandage. - Dressing changes per wound care. # Right breast tenderness - Warm compresses to the engorged right breast. - consultants to follow up with patient on Monday. - Patient has been receiving Percocet 5/325 mg Q4-6H for pain. A single dose of Ibuprofen was given for the additional breast pain and patient reported good pain control. We explained to the patient the possible risk kidney injury with the combination for the gentamicin of continued use of Ibuprofen. The patient opted to continue with Ibuprofen in spite of the known risks. Mariano Yates DO Jan 07, 2017 16:21
[2017-01-07 18:19] VITALS: BP 132/71; PULSE 91; RESP 18; O2SAT 99
[2017-01-07 22:06] VITALS: BP 103/68; PULSE 62; RESP 17; O2SAT 98
== END 2017-01-08 01:34 | disposition admitted as inpatient to this hospital (09) | DRG 776 ==
LOC: MOC 16:16
PROVIDERS: ADMIT Legal Medicine; ATTEND Legal Medicine
DX: O86.0 Infection of obstetric surgical wound (principal)